=== PATIENT | female | born 1970 | race Caucasian/White ===

== ENCOUNTER 2017-01-05 19:26 | Emergency (ER) | payer OTHER ==
[~2017-01-05] VITALS: Ht 157.4 cm; Wt 77.1 kg
[~2017-01-05 19:26] MED LIST: AUGMENTIN 875875 MG PO; CEFUROXIME AXE250 MG PO; CHERATUSSIN AC120 ML PO; MEDROL DOSEPAK4 MG PO; NICODERM C14 MG/24 H TD; PREDNISONE10 MG PO; PROAIR HFA8.5 GM INH; QVAR0.08 MG/AC INH; VIBRAMYCIN100 MG PO; ZYRTEC10 MG PO
[2017-01-05] MEDS ORDERED: Peridex 473 ML473 ML PO (19:50)
[2017-01-05] MEDS ORDERED: PENICILLIN VK500 MG PO (19:50)
[2017-01-05] MEDS ORDERED: NAPROSYN500 MG PO (19:50)
== END 2017-01-05 19:40 | disposition home or self-care (01) ==
LOC: ED 19:26
DX: K02.9 Dental caries, unspecified (principal); F17.200 Nicotine dependence, unspecified, uncomplicated; J44.9 Chronic obstructive pulmonary disease, unspecified

== ENCOUNTER 2017-10-17 12:37 | Emergency (ER) | payer OTHER ==
[~2017-10-17] VITALS: Ht 157.4 cm; Wt 77.1 kg
[~2017-10-17 12:37] MED LIST changes: +NAPROSYN500 MG PO; +PENICILLIN VK500 MG PO; +Peridex 473 ML473 ML PO
[2017-10-17 13:59] LABS: BASO # 0.1 10*3/uL (0.0-0.1); BASO % 0.8 % (0.0-1.0); EOS # 0.5 10*3/uL (0.0-0.4); EOS % 5.2 % (1.0-4.0); HEMATOCRIT 49.6 % (37.0-47.0); HEMOGLOBIN 16.2 g/dl (12.0-16.0); LYMPH # 4.2 10*3/uL (1.3-4.4); LYMPH % 41.4 % (27.0-41.0); MEAN CELL VOLUME 93.1 fl (81.0-99.0); MEAN CORPUSCULAR HGB 30.4 pg (27.0-31.0); MEAN CORPUSCULAR HGB CONC 32.7 g/dl (33.0-37.0); MEAN PLATELET VOLUME 9.8 fl (9.6-12.3); MONO # 0.5 10*3/uL (0.1-1.0); MONO % 4.7 % (3.0-9.0); NEUT # 4.8 10*3/uL (2.3-7.9); NEUT % 47.6 % (47.0-73.0); PLATELET COUNT AUTOMATED 321 10*3/uL (130-400); RED BLOOD COUNT 5.33 10*6/uL (4.10-5.10); RED CELL DISTRI WIDTH 13.9 % (0-14.5); WHITE BLOOD COUNT 10.1 10*3/uL (4.8-10.8)
[2017-10-17 14:16] LABS: BUN 11 mg/dl (7-24); CHLORIDE 104 mmol/L (98-107); SGOT/AST 15 IU/L (3-35); SGPT/ALT 23 U/L (12-78); SODIUM 139 mmol/L (136-145)
[2017-10-17 14:18] LABS: ALKALINE PHOSPHATASE 77 U/L (45-117); TOTAL PROTEIN 7.8 gm/dL (6.4-8.2)
[2017-10-17 14:19] LABS: TROPONIN I < 0.015 ng/ml (<0.045)
[2017-10-17] MEDS ORDERED: PREDNISONE20 M1 PO (14:35)
[2017-10-17] MEDS ORDERED: PROAIR HFA8.5 GM INH (14:35)
[2017-10-17] MEDS ORDERED: ZITHROMAX250 MG PO (14:35)
== END 2017-10-17 14:46 | disposition home or self-care (01) ==
LOC: ED 12:37
PROVIDERS: Nurse Practitioner Family
DX: J18.1 Lobar pneumonia, unspecified organism (principal); F17.200 Nicotine dependence, unspecified, uncomplicated

== ENCOUNTER 2017-10-30 09:52 | Emergency (ER) | payer OTHER ==
[~2017-10-30] VITALS: Ht 157.4 cm; Wt 77.1 kg
[~2017-10-30 09:52] MED LIST changes: +PREDNISONE20 M1 PO; +ZITHROMAX250 MG PO
[2017-10-30 10:33] LABS: BASO # 0.1 10*3/uL (0.0-0.1); BASO % 0.9 % (0.0-1.0); EOS # 0.8 10*3/uL (0.0-0.4); EOS % 7.3 % (1.0-4.0); HEMATOCRIT 49.6 % (37.0-47.0); HEMOGLOBIN 16.7 g/dl (12.0-16.0); LYMPH # 3.1 10*3/uL (1.3-4.4); LYMPH % 27.6 % (27.0-41.0); MEAN CELL VOLUME 92.4 fl (81.0-99.0); MEAN CORPUSCULAR HGB 31.1 pg (27.0-31.0); MEAN CORPUSCULAR HGB CONC 33.7 g/dl (33.0-37.0); MONO # 0.5 10*3/uL (0.1-1.0); MONO % 4.6 % (3.0-9.0); NEUT # 6.6 10*3/uL (2.3-7.9); NEUT % 59.2 % (47.0-73.0); PLATELET COUNT AUTOMATED 343 10*3/uL (130-400); RED BLOOD COUNT 5.37 10*6/uL (4.10-5.10); WHITE BLOOD COUNT 11.1 10*3/uL (4.8-10.8)
[2017-10-30 10:48] LABS: ALBUMIN 3.8 gm/dl (3.1-4.5); ALKALINE PHOSPHATASE 83 U/L (45-117); BUN 13 mg/dl (7-24); CHLORIDE 109 mmol/L (98-107); CREATININE 0.88 mg/dL (0.55-1.02); POTASSIUM 4.3 mmol/L (3.5-5.1); SGOT/AST 15 IU/L (3-35); SGPT/ALT 26 U/L (12-78); SODIUM 140 mmol/L (136-145); TOTAL PROTEIN 7.7 gm/dL (6.4-8.2)
[2017-10-30] MEDS ORDERED: PREDNISONE20 M1 PO (13:15)
[2017-10-30] MEDS ORDERED: FLONASE ALLERG9.9 ML NAS (13:15)
[2017-10-30] MEDS ORDERED: PROAIR HFA8.5 GM INH (13:15)
== END 2017-10-30 13:31 | disposition home or self-care (01) ==
LOC: ED 09:52
PROVIDERS: Nurse Practitioner Family
DX: J44.1 Chronic obstructive pulmonary disease with (acute) exacerbation (principal); F17.200 Nicotine dependence, unspecified, uncomplicated; Z98.51 Tubal ligation status; Z79.899 Other long term (current) drug therapy

== ENCOUNTER 2017-11-21 20:51 | Inpatient (IN) | payer OTHER ==
[~2017-11-21] VITALS: Ht 157.4 cm; Wt 80.5 kg
--- NOTE | ~2017-11-21 | PR ---
[place], [place] PROGRESS NOTE NAME: HARRISON IRVIN UNIT #: [id number] ROOM: 412 DOCTOR: LATOSHA STALLINGS MD,PAOLA BIRTHDATE: [birth year] DOS: 11/25/2017 SUBJECTIVE: The patient was noted comfortable at this time without acute distress, resting. The coughing has improved significantly. There were ____ symptoms of chest pain or hemoptysis and symptoms of nausea or vomiting. OBJECTIVE: VITAL SIGNS: For the patient, which was recorded. The patient shows the temperature noted as normal. The respiratory rate of 18, heart rate of 78, blood pressure 122/80. HEENT: Chronic obesity. NECK: Supple. Head was atraumatic. CARDIOVASCULAR: S1, S2 is audible. LUNGS: The patient noted without any wheeze or crackles at this time. ABDOMEN: Soft, nontender with nzsw-dl-zovjplfr obesity, bowel sounds present. EXTREMITIES: Without any acute edema. IMPRESSION: Progressive resolution of acute hypoxic respiratory failure, acute exacerbation of bronchial asthma, possible chronic obstructive pulmonary disease has been considered. History of chronic nicotine abuse with moderate obesity. PLAN OF TREATMENT: The patient has been assessed with 6-minute walk today, but the patient did not qualify for oxygen supplementation, was planned for home discharge. She was advised to keep up appointment to be seen in the office as the patient previously planned in the next several days. PAOLA REINA MD CM:PNTRANS [id number] PAOLA STALLINGS MD 11/25/17 1845 interface
--- NOTE | ~2017-11-21 | PR ---
[place], [place] PROGRESS NOTE NAME: HARRISON IRVIN UNIT #: [id number] ROOM: 412 DOCTOR: LATOSHA STALLINGS MD,PAOLA BIRTHDATE: [birth year] DOS: 11/24/2017 SUBJECTIVE: She has been noted comfortable. Bronchoscopy done yesterday with significant reduction and improvement and resolution of acute symptoms has been noted. Denies symptoms of chest pain or hemoptysis. OBJECTIVE: VITAL SIGNS: Normal temperature, respiratory rate 18, heart rate of 80, blood pressure 112/80. The pulse oxygen saturation on 2-1/2 liters nasal cannula is 95% saturation. HEENT: Head was atraumatic. Eyes nonicterus. NECK: Supple. CARDIOVASCULAR: S1, S2 audible. LUNGS: Without wheeze or crackles. ABDOMEN: Soft, nontender. EXTREMITIES: Without any acute edema. LABORATORY DATA: CBC: WBC count 13.5 today. Blood culture, no bacterial growth. Final culture is pending from the 10th of this month. Aggressive bronchial washings. Moderate white blood cells, epithelial cells, many gram-positive cocci in pairs, chains and clusters, moderate growth of yeast. Urine culture noted normal emerson, final culture results were pending. IMPRESSION: Improving acute exacerbation of bronchial asthma, eosinophilic type gradually with improving hypoxia. PLAN OF TREATMENT: The patient could be discharged home on oral tapering dose of prednisone, bronchodilators, use of inhaled corticosteroids. Abstinence from tobacco use and outpatient followup was advised. PAOLA REINA MD CM:PNTRANS [phone] PAOLA STALLINGS MD 11/25/17 0059 interface
--- NOTE | ~2017-11-21 | PROC NOTE ---
[place], [place] PROCEDURE NOTE NAME: HARRISON IRVIN UNIT #: [id number] ROOM: 412 DOCTOR: LATOSHA STALLINGS MD,PAOLA BIRTHDATE: [birth year] DOS: 11/23/2017 PREOPERATIVE DIAGNOSIS: Severe coughing, wheezing, nonresolving with current medical management. PROCEDURE: Removal of mucus impaction and plugs of mucus, mainly in the lower portion endobronchial tree bilaterally, greater on the left than the right side. PROCEDURE DESCRIPTION: Informed consent obtained for the patient. The patient brought to the OR and placed in supine position. Conscious sedation administered by the Anesthesia Department. After achieving proper sedation, airway introduced into the mouth. Bronchoscope advanced to the airway into the laryngeal area. Epiglottis and vocal cords were seen. Bronchoscope advanced to vocal cord and tracheal lumen. Tracheal lumen was noted with a moderate amount of thick mucus, which was suctioned out with the help of normal saline wash. The lexii was noted sharp. Lower lobes on the right and left side were noted impacted with moderate thick mucus plug, greater on the left than the right side. All secretions suctioned out clear with the help of normal saline wash. Other endobronchial tree bronchial washing was also taken ON the right and left side. Bronchial washing sent for the appropriate culture. Procedure was tolerated by the patient without difficulty. Postoperative findings were discussed with the patient's family members in detail. PAOLA REINA MD CM:PROCNOTE:PROCEDURE NOTE [id number] PAOLA STALLINGS MD
--- NOTE | ~2017-11-21 | PR ---
[place], [place] PROGRESS NOTE NAME: HARRISON IRVIN UNIT #: [id number] ROOM: 412 DOCTOR: PAOLA PATTON MD BIRTHDATE: [birth year] DOS: 11/23/2017 SUBJECTIVE: The patient was noted same. She is still noted with severe cough, which remains persistent with some shortness of breath and intermittent wheezing. Denies symptoms of chest pain or any hemoptysis. The patient has symptoms of nausea and vomiting. The patient denies symptoms of chest pain. Denies symptoms of abdominal pain. Denies any edema or pain in the lower extremities. She is already noted n.p.o. past midnight and bronchoscopy, which was planned for today. OBJECTIVE: VITAL SIGNS: Normal temperature, respiratory rate 22, heart rate 102, blood pressure 130/63. Pulse oxygen saturation 3 liters nasal cannula 94% saturation. HEENT: Examination shows head was atraumatic. Eyes nonicterus. NECK: Supple. CARDIOVASCULAR: S1, S2 is audible. LUNGS: Noted without any crackles or rhonchi. Moderate decreased breath sounds. The patient with expiratory wheezing. No crackles. ABDOMEN: Soft, nontender and obese. EXTREMITIES: Without any acute edema. SKIN: Visible skin, no lesions or rashes. MUSCULOSKELETAL: The patient without any acute deformities. CENTRAL NERVOUS SYSTEM: Cranial nerves 2-12 intact. No focal deficits. LABORATORY DATA: CBC of count 19.6, remaining CBC was normal. The BMP of patient 511. Sodium 136, BUN 11, and creatinine 0.9. IMPRESSION: 1. The patient who has been currently noted with ongoing acute exacerbation of bronchial asthma with eosinophilic phenotype. 2. Acute bronchitis. 3. Chronic nicotine dependence. 4. Suspicion of mucus impaction of major airways. PLAN OF MANAGEMENT: Proceed with the bronchoscopy as already planned. No changes in the medical management at this time. Steroid dose will be continued previously. Usual care, other supportive plan of therapy and management. Any addition of changes in the treatment if necessary will be ordered after the bronchoscopy. [place], [place] PROGRESS NOTE NAME: HARRISON IRVIN UNIT #: [id number] ROOM: 412 DOCTOR: PAOLA PATTON MD BIRTHDATE: [birth year] PAOLA REINA MD CM:PNTRANS 1124 PAOLA STALLINGS MD 11/23/17 1227 interface
--- NOTE | ~2017-11-21 | CON ---
[place], [place] REPORT OF CONSULTATION NAME: HARRISON IRVIN UNIT #: [id number] ROOM: 412 DOCTOR: PAOLA PATTON MD BIRTHDATE: [birth year] DOS: 11/22/2017 PULMONARY CONSULTATION, EVALUATION AND MANAGEMENT CONSULTATION REQUESTED BY: Hospitalist services. REASON FOR CONSULTATION: For assessment of recurrent, nonresolving respiratory symptom. HISTORY OF PRESENT ILLNESS: This is a 47-year-old white female patient, who has been admitted under the hospitalist service this morning. The patient reported having symptoms of increased shortness of breath that has been occurring with progressive coughing. The patient's symptoms ongoing for the past couple of months, but the symptoms have been noted to be progressive worsening. She has been treated with the Mucinex and other medication without any improvement in the respiratory status. Symptoms have been noted progressively worse. She denies symptoms of chest pain. Cough has been noted to be severe and nonproductive mostly. There is minimal sputum expectoration reported, wheezing with chest tightness reported with some symptoms of chest pain. She has an appointment established in my office for 12/06/2017 for new patient assessment, but the patient came into the Emergency Room since she has not been improving. The patient already uses CPAP as well as an outpatient. REVIEW OF SYSTEMS: CONSTITUTIONAL: Fatigue and tiredness reported with symptoms of fever or chills. EYES: Denies any burning, redness, or tenderness. EARS, NOSE, THROAT SYMPTOMS: Denies sore throat, hoarseness, otalgia, postnasal drainage, or epistaxis. CARDIOVASCULAR: Denies angina symptoms, palpitation, or edema of lower extremity. GASTROINTESTINAL: Dysphagia, nausea, vomiting, diarrhea, abdominal pain, hematemesis, or melena. SKIN: Denies abnormal lesions or rashes. MUSCULOSKELETAL: Without any acute deformities. CENTRAL NERVOUS SYSTEM: Dizziness, headache, diplopia, or syncopal episodes. Remaining systems were reviewed. They were noted all negative. PAST MEDICAL HISTORY: 1. Recurrent bronchitis. 2. Chronic nicotine dependence. 3. Moderate obesity, BMI of 32. SOCIAL HISTORY: The patient is , has 4 children. Smoking noted since early teens. Active tobacco use, 1 pack of cigarettes per day. No history of alcohol use or any illicit drugs use. PAST SURGICAL HISTORY: None. [place], [place] REPORT OF CONSULTATION NAME: HARRISON IRVIN UNIT #: [id number] ROOM: 412 DOCTOR: LATOSHA STALLINGS MD,PAOLA BIRTHDATE: [birth year] HOME MEDICATIONS: The patient has recent prescription of prednisone, Medrol Dosepak, ____ and Zithromax. The patient uses Flonase and poor HFA inhaler use. FAMILY HISTORY: The patient's father, living 66 years old with history of heart disease. His mother is a 65-year-old patient with the kidney stones. DRUG ALLERGIES: No known drug allergies. PHYSICAL EXAMINATION: GENERAL: This is a 47-year-old female, who has been currently resting, comfortably sitting on the bed without acute distress. Height of 5 feet 2 inches, weight 177, BUN 32.7. VITAL SIGNS: Normal temperature, respirations 18-20, heart 91-113, blood pressure 118/63-110/58. Pulse oxygen saturation on room air 92% saturation at rest. HEENT: Moderate obesity. Head was atraumatic. Eyes nonicterus. NECK: Supple. CARDIOVASCULAR: S1, S2 audible. LUNGS: Diffuse reduction in breath sounds with expiratory wheezing without any crackles. ABDOMEN: Soft. Moderate obesity. Bowel sounds present without tenderness. CENTRAL NERVOUS SYSTEM: Cranial nerves 2-12 intact. MUSCULOSKELETAL: Without any acute deformities. SKIN: Noted without any abnormal lesions or rashes. LABORATORY DATA: CMP that was done yesterday with normal BUN and creatinine 1.16, minimally elevated, LFTs normal. CBC yesterday, WBC count 10.9 noted on admission with 6.8% eosinophils. CBC repeated this morning was noted with normal CBC. CMP on 11/22/2017, glucose 152, BUN normal, creatinine was normal. Chest x-ray, 1 view, which was done on admission was reviewed without any acute pulmonary abnormalities. IMPRESSION: 1. The patient appears to have acute exacerbation of bronchial asthma. The patient with eosinophilic type and acute bronchitis. 2. Chronic nicotine abuse as well. 3. Possibility of chronic obstructive pulmonary disease would be considered and to be excluded on further outpatient assessment. 4. Suspicion of mucus impaction major airway with prolonged symptoms ongoing for the past several months, nonresolving, cough noted severe, nonproductive. PLAN OF MANAGEMENT: I agree with use of Solu-Medrol 60 mg b.i.d. Continuation of the bronchodilators every 4 hours. Continue current antibiotics as well. The patient was assessed for therapeutic bronchoscopy, which will be done tomorrow morning to extract mucus impaction major airway, which would be considered very likely. Other additional changes in the treatment will be made based on progression of the illness. Use of nicotine replacement patch to overcome any nicotine withdrawal and/or Chantix. Other supportive therapy, plan of management. [place], [place] REPORT OF CONSULTATION NAME: HARRISON IRVIN UNIT #: [id number] ROOM: [facility] DOCTOR: LATOSHA STALLINGS MD,PAOLA BIRTHDATE: [birth year] Thanks for allowing me to participate in the care of this patient. PAOLA REINA MD CM:CONSTR:REPORT OF CONSULTATION 1502 11/23/17 0110 interface
[~2017-11-21 20:51] MED LIST changes: +FLONASE ALLERG9.9 ML NAS
[2017-11-21 20:52] VITALS: BP 111/76
[2017-11-21 22:22] LABS: BASO # 0.1 10*3/uL (0.0-0.1); BASO % 0.7 % (0.0-1.0); EOS # 0.7 10*3/uL (0.0-0.4); EOS % 6.8 % (1.0-4.0); HEMATOCRIT 46.2 % (37.0-47.0); HEMOGLOBIN 15.4 g/dl (12.0-16.0); LYMPH # 4.4 10*3/uL (1.3-4.4); LYMPH % 39.8 % (27.0-41.0); MEAN CELL VOLUME 93.1 fl (81.0-99.0); MEAN CORPUSCULAR HGB CONC 33.3 g/dl (33.0-37.0); MEAN PLATELET VOLUME 9.6 fl (9.6-12.3); MONO # 0.6 10*3/uL (0.1-1.0); MONO % 5.8 % (3.0-9.0); NEUT # 5.1 10*3/uL (2.3-7.9); NEUT % 46.6 % (47.0-73.0); PLATELET COUNT AUTOMATED 328 10*3/uL (130-400); RED BLOOD COUNT 4.96 10*6/uL (4.10-5.10); RED CELL DISTRI WIDTH 13.5 % (0-14.5); WHITE BLOOD COUNT 10.9 10*3/uL (4.8-10.8)
[2017-11-21 22:37] LABS: ALBUMIN 3.9 gm/dl (3.1-4.5); ALKALINE PHOSPHATASE 82 U/L (45-117); BUN 19 mg/dl (7-24); CHLORIDE 103 mmol/L (98-107); CREATININE 1.16 mg/dL (0.55-1.02); POTASSIUM 4.4 mmol/L (3.5-5.1); SGOT/AST 11 IU/L (3-35); SGPT/ALT 21 U/L (12-78); SODIUM 140 mmol/L (136-145); TOTAL PROTEIN 7.2 gm/dL (6.4-8.2)
[2017-11-21 23:50] VITALS: BP 111/73
[2017-11-22] VITALS (7 sets, daily range): BP systolic 104–127; BP diastolic 62–78
[2017-11-22 07:15] LABS: BASO % 0.4 % (0.0-1.0); EOS % 0.5 % (1.0-4.0); HEMOGLOBIN 14.4 g/dl (12.0-16.0); LYMPH # 1.3 10*3/uL (1.3-4.4); LYMPH % 15.1 % (27.0-41.0); MEAN CELL VOLUME 94.2 fl (81.0-99.0); MEAN CORPUSCULAR HGB 30.8 pg (27.0-31.0); MEAN CORPUSCULAR HGB CONC 32.7 g/dl (33.0-37.0); MEAN PLATELET VOLUME 10.3 fl (9.6-12.3); MONO # 0.1 10*3/uL (0.1-1.0); MONO % 0.7 % (3.0-9.0); NEUT % 82.8 % (47.0-73.0); PLATELET COUNT AUTOMATED 282 10*3/uL (130-400); RED BLOOD COUNT 4.67 10*6/uL (4.10-5.10); RED CELL DISTRI WIDTH 13.4 % (0-14.5); WHITE BLOOD COUNT 8.5 10*3/uL (4.8-10.8)
[2017-11-22 07:32] LABS: ALBUMIN 3.4 gm/dl (3.1-4.5); ALKALINE PHOSPHATASE 77 U/L (45-117); BUN 16 mg/dl (7-24); CHLORIDE 107 mmol/L (98-107); CHOLESTEROL 290 mg/dL (<200); CREATININE 1.07 mg/dL (0.55-1.02); FREE T4 0.81 ng/dl (0.76-1.46); HDL CHOLESTEROL 33 mg/dl (40-60); LDL CHOLESTEROL 200 mg/dL (9-159); PHOSPHOROUS 1.9 mg/dL (2.5-4.9); POTASSIUM 4.3 mmol/L (3.5-5.1); SGOT/AST 12 IU/L (3-35); SGPT/ALT 25 U/L (12-78); SODIUM 140 mmol/L (136-145); TOTAL PROTEIN 6.7 gm/dL (6.4-8.2); TRIGLYCERIDES 283 mg/dl (<150); VLDL CHOLESTEROL 57 mg/dL (6-40)
[2017-11-22 08:24] LABS: VITAMIN D, 25-HYDROXY 9.8 ng/mL (30-100)
[2017-11-22 08:39] LABS: BILIRUBIN NEGATIVE (NEGATIVE); BLOOD 1+ (NEGATIVE); CLARITY CLEAR (CLEAR); COLOR YELLOW (YELLOW); GLUCOSE NEGATIVE (NEGATIVE); KETONE NEGATIVE (NEGATIVE); LEUKO ESTERASE NEGATIVE (NEGATIVE); NITRITE NEGATIVE (NEGATIVE); PH 5.5 (5.0-9.0); UROBILINOGEN 0.2 E.U./dl (0.2-1.0)
[2017-11-22 09:14] LABS: BACTERIA TRACE; EPITHELIAL CELLS 0-2
[2017-11-23] VITALS (8 sets, daily range): BP systolic 91–140; BP diastolic 57–87
[2017-11-23 05:38] LABS: BUN 11 mg/dl (7-24); CHLORIDE 112 mmol/L (98-107); CREATININE 0.94 mg/dL (0.55-1.02); POTASSIUM 4.1 mmol/L (3.5-5.1); SODIUM 145 mmol/L (136-145)
[2017-11-23 06:09] LABS: BASO % 0.1 % (0.0-1.0); HEMATOCRIT 42.2 % (37.0-47.0); HEMOGLOBIN 13.6 g/dl (12.0-16.0); LYMPH # 1.6 10*3/uL (1.3-4.4); LYMPH % 8.1 % (27.0-41.0); MEAN CELL VOLUME 95.5 fl (81.0-99.0); MEAN CORPUSCULAR HGB 30.8 pg (27.0-31.0); MEAN CORPUSCULAR HGB CONC 32.2 g/dl (33.0-37.0); MEAN PLATELET VOLUME 10.5 fl (9.6-12.3); MONO # 0.5 10*3/uL (0.1-1.0); MONO % 2.3 % (3.0-9.0); NEUT # 17.4 10*3/uL (2.3-7.9); NEUT % 88.7 % (47.0-73.0); PLATELET COUNT AUTOMATED 307 10*3/uL (130-400); RED BLOOD COUNT 4.42 10*6/uL (4.10-5.10); RED CELL DISTRI WIDTH 13.9 % (0-14.5); WHITE BLOOD COUNT 19.6 10*3/uL (4.8-10.8)
[2017-11-24] VITALS: BP 117/77
[2017-11-24 06:16] LABS: BASO % 0.2 % (0.0-1.0); EOS % 0.1 % (1.0-4.0); HEMATOCRIT 41.9 % (37.0-47.0); HEMOGLOBIN 13.5 g/dl (12.0-16.0); LYMPH # 1.4 10*3/uL (1.3-4.4); LYMPH % 10.6 % (27.0-41.0); MEAN CELL VOLUME 95.7 fl (81.0-99.0); MEAN CORPUSCULAR HGB 30.8 pg (27.0-31.0); MEAN CORPUSCULAR HGB CONC 32.2 g/dl (33.0-37.0); MEAN PLATELET VOLUME 10.5 fl (9.6-12.3); MONO # 0.3 10*3/uL (0.1-1.0); MONO % 2.5 % (3.0-9.0); NEUT # 11.4 10*3/uL (2.3-7.9); NEUT % 84.9 % (47.0-73.0); PLATELET COUNT AUTOMATED 292 10*3/uL (130-400); RED BLOOD COUNT 4.38 10*6/uL (4.10-5.10); RED CELL DISTRI WIDTH 14.3 % (0-14.5); WHITE BLOOD COUNT 13.5 10*3/uL (4.8-10.8)
[2017-11-24 08:00] VITALS: BP 111/74
[2017-11-24 12:00] VITALS: BP 112/80
[2017-11-24 13:04] LABS: ACID FAST SPEC PROCESSING Concentration (.)
[2017-11-24 16:00] VITALS: BP 133/63
[2017-11-24 20:00] VITALS: BP 127/84
[2017-11-25] VITALS: BP 112/78
[2017-11-25 06:33] LABS: HEMATOCRIT 43.9 % (37.0-47.0); HEMOGLOBIN 14.1 g/dl (12.0-16.0); MEAN CELL VOLUME 94.8 fl (81.0-99.0); MEAN CORPUSCULAR HGB 30.5 pg (27.0-31.0); MEAN CORPUSCULAR HGB CONC 32.1 g/dl (33.0-37.0); MEAN PLATELET VOLUME 10.6 fl (9.6-12.3); PLATELET COUNT AUTOMATED 301 10*3/uL (130-400); RED BLOOD COUNT 4.63 10*6/uL (4.10-5.10); RED CELL DISTRI WIDTH 14.1 % (0-14.5); WHITE BLOOD COUNT 12.7 10*3/uL (4.8-10.8)
[2017-11-25 07:05] LABS: ALBUMIN 3.4 gm/dl (3.1-4.5); BUN 15 mg/dl (7-24); CHLORIDE 108 mmol/L (98-107); CREATININE 0.82 mg/dL (0.55-1.02); POTASSIUM 4.2 mmol/L (3.5-5.1); SGOT/AST 10 IU/L (3-35); SGPT/ALT 18 U/L (12-78); SODIUM 142 mmol/L (136-145)
[2017-11-25 07:07] LABS: ALKALINE PHOSPHATASE 69 U/L (45-117); TOTAL PROTEIN 6.6 gm/dL (6.4-8.2)
[2017-11-25 07:13] LABS: PLATELET SUFFICIENCY NORMAL (NORMAL); TOTAL CELLS COUNTED 100 #CELLS
[2017-11-25 08:00] VITALS: BP 122/80
[2017-11-25 12:00] VITALS: BP 114/82
[2017-11-25] MEDS ORDERED: MUCINEX ER600 MG PO (12:14)
[2017-11-25] MEDS ORDERED: DULE1ARO1 INH (12:14)
[2017-11-25] MEDS ORDERED: PREDNISONE10 MG PO (12:14)
[2017-11-25] MEDS ORDERED: ATORVASTATIN CA40 M1 PO (12:14)
[2017-11-25] MEDS ORDERED: PROAIR HFA8.5 GM INH (12:14)
[2017-11-25] MEDS ORDERED: CHANTIX1 M1 PO (13:54)
== END 2017-11-25 13:59 | disposition home or self-care (01) | DRG 871 ==
LOC: ED 20:51 → 4E 11-22 00:18 → EDHOLD 11-22 00:18 → 4E 11-22 00:29
PROVIDERS: Emergency Medicine; Family Medicine; Internal Medicine Critical Care Medicine
PROC: 0BC98ZZ Extirpation of Matter from Lingula Bronchus, Via Natural or Artificial Opening Endoscopic (ICD-10-PCS; principal; 2017-11-23)
PROC: 0BC48ZZ Extirpation of Matter from Right Upper Lobe Bronchus, Via Natural or Artificial Opening Endoscopic (ICD-10-PCS; 2017-11-23)
PROC: 0BC88ZZ Extirpation of Matter from Left Upper Lobe Bronchus, Via Natural or Artificial Opening Endoscopic (ICD-10-PCS; 2017-11-23)
PROC: 0BC58ZZ Extirpation of Matter from Right Middle Lobe Bronchus, Via Natural or Artificial Opening Endoscopic (ICD-10-PCS; 2017-11-23)
PROC: 0BC38ZZ Extirpation of Matter from Right Main Bronchus, Via Natural or Artificial Opening Endoscopic (ICD-10-PCS; 2017-11-23)
PROC: 0BC78ZZ Extirpation of Matter from Left Main Bronchus, Via Natural or Artificial Opening Endoscopic (ICD-10-PCS; 2017-11-23)
PROC: 0BC68ZZ Extirpation of Matter from Right Lower Lobe Bronchus, Via Natural or Artificial Opening Endoscopic (ICD-10-PCS; 2017-11-23)
PROC: 0BCB8ZZ Extirpation of Matter from Left Lower Lobe Bronchus, Via Natural or Artificial Opening Endoscopic (ICD-10-PCS; 2017-11-23)
PROC: 0BC18ZZ Extirpation of Matter from Trachea, Via Natural or Artificial Opening Endoscopic (ICD-10-PCS; 2017-11-23)
DX: A41.9 Sepsis, unspecified organism (principal); J18.9 Pneumonia, unspecified organism; J96.01 Acute respiratory failure with hypoxia; N17.9 Acute kidney failure, unspecified; J44.0 Chronic obstructive pulmonary disease with (acute) lower respiratory infection; T17.490A Other foreign object in trachea causing asphyxiation, initial encounter; T17.590A Other foreign object in bronchus causing asphyxiation, initial encounter; J45.901 Unspecified asthma with (acute) exacerbation; J44.1 Chronic obstructive pulmonary disease with (acute) exacerbation; R65.20 Severe sepsis without septic shock; E78.5 Hyperlipidemia, unspecified; E66.8 Other obesity; F17.210 Nicotine dependence, cigarettes, uncomplicated; J20.9 Acute bronchitis, unspecified; X58.XXXA Exposure to other specified factors, initial encounter; Z98.51 Tubal ligation status; Z84.1 Family history of disorders of kidney and ureter; Z80.8 Family history of malignant neoplasm of other organs or systems; Z82.49 Family history of ischemic heart disease and other diseases of the circulatory system; Z68.32 Body mass index [BMI] 32.0-32.9, adult; Y93.89 Activity, other specified; Y92.89 Other specified places as the place of occurrence of the external cause; Y99.8 Other external cause status

== ENCOUNTER → 2017-12-04 | Outpatient (CLI) | payer OTHER ==
[~2017-12-04] MED LIST changes: +ATORVASTATIN CA40 M1 PO; +CHANTIX1 M1 PO; +DULE1ARO1 INH; +MUCINEX ER600 MG PO
== END | disposition home or self-care (01) ==
LOC: RESCLI
DX: J44.9 Chronic obstructive pulmonary disease, unspecified (principal); E78.5 Hyperlipidemia, unspecified; J30.2 Other seasonal allergic rhinitis; N92.6 Irregular menstruation, unspecified; R73.03 Prediabetes; Z71.6 Tobacco abuse counseling; Z72.0 Tobacco use

== ENCOUNTER 2017-12-18 15:24 | Inpatient (IN) | payer OTHER ==
--- NOTE | ~2017-12-18 | CON ---
[place], [place] REPORT OF CONSULTATION NAME: HARRISON IRVIN [facility] #: [id number] UNIT #: [id number] ROOM: 522 DOCTOR: PAOLA PATTON MD BIRTHDATE: [birth year] DOS: 12/19/2017 CONSULTATION REQUESTED BY: Hospitalist services for assessment of the acute respiratory symptoms. HISTORY OF PRESENT ILLNESS: This is a 47-year-old white female who has been treated in this hospital recently for the acute exacerbation of bronchial asthma and acute bronchitis. The patient required therapeutic bronchoscopy during this admission in November 2017 as well. He has been doing extremely well, free of any acute respiratory symptoms. She stated that she contracted cold-like sensation about couple of days, which was noted with rapid progression. She has noticed significant difficulty breathing. The patient is unable to breath with minimal exertion. She also developed symptoms of coughing, which has been noted progressively increased, nonproductive, chest congestion and hoarseness. She denies symptoms of hemoptysis. She denies symptoms of chest pain with current symptoms. She came into the Emergency Room where she had been assessed and readmitted to the hospital for further medical management. The patient has been seen in my office after discharge from the hospital, doing very well except symptoms of gastroesophageal reflux noted with hoarseness. Responded to the treatment very well with the use of the antireflux therapy with use of the Prilosec. PAST MEDICAL HISTORY: 1. Bronchial asthma. The severity was noted as uncomplicated moderate persistent. 2. Chronic obstructive pulmonary disease as well. 3. Allergic rhinitis. 4. Gastroesophageal reflux. 5. Dysphonia related to gastroesophageal reflux. 6. Moderate obesity as well. PAST SURGICAL HISTORY: Therapeutic bronchoscopy in November 2017. SOCIAL HISTORY: She is , has 4 children, lives at home. Smoking was noted from age [age] years old, 2 packs of cigarettes per day. Stated currently she is smoking only few cigarettes a day and has not been able to stop it completely and history of chronic alcohol and illicit drug use. FAMILY HISTORY: Father is living 65 years old without any medical illnesses. Mother is healthy 64 years old living as well. HOME MEDICATIONS: 1. Omeprazole 40 mg daily. 2. Dulera 100/5 two inhalations b.i.d. 3. Lipitor 40 mg daily. 4. ProAir HFA inhaler p.r.n. use. 5. Flonase 1 spray each nostril b.i.d. PHYSICAL EXAMINATION: GENERAL: This is a 47-year-old female who has been currently sitting on the bed [place], [place] REPORT OF CONSULTATION NAME: HARRISON IRVIN UNIT #: [id number] ROOM: 522 DOCTOR: LATOSHA STALLINGS MD,[facility] BIRTHDATE: [birth year] without any acute distress. Height of 5 feet 2 inches, weight of 104 pounds. BMI 32. VITAL SIGNS: Normal temperature, respiratory rate of 11-12, heart rate of 113-114 with sinus tachycardia, blood pressure 127/63-148/95, pulse oxygen saturation noted 2 liters 94% saturation. HEENT: Head is atraumatic. Eyes, nonicterus. NECK: Supple. CARDIOVASCULAR: S1, S2 audible. LUNGS: Noted moderate reduction in breath sounds bilaterally. There were no crackles, rhonchi. Moderate expiratory wheezing. ABDOMEN: Soft. Mild to moderate obesity. Bowel sounds present. EXTREMITIES: Without any acute edema. SKIN: No lesions or rashes. MUSCULOSKELETAL: No acute deformities. CENTRAL NERVOUS SYSTEM: Cranial nerves II-XII was intact. LABORATORY DATA: CBC that was done yesterday on admission, 4.1% eosinophils. The remaining CBC is normal. PT and PTT on 12/18/2017 were noted as normal. CMP on 12/18/2017, BUN normal, creatinine was normal. CBC that was done this morning was noted as WBC count 5.6, hemoglobin 14, hematocrit 42.8. Troponin remains normal. One view chest x-ray, which was done and the margins noted clear of any acute pulmonary infiltration. IMPRESSION: 1. Eosinophilic phenotype with uncomplicated moderate persistent bronchial asthma with acute exacerbation noted with history of chronic obstructive pulmonary disease, acute exacerbation as well and a chronic persistent nicotine abuse; however, the quantity of tobacco use has been decreased. 2. Chronic dysphonia related to the uncontrolled gastroesophageal reflux as well noted worsened again. PLAN OF TREATMENT: Continuation of the bronchodilator every 4 hours. Continue Solu-Medrol 60 mg q.8 hours for the next 24 hours, then reduce the dose. Bronchodilators administration of antibiotics. Tobacco cessation would be encouraged. The patient has been started on nicotine replacement patches that will be continued to overcome any nicotine withdrawal. Addition change in treatment will be made based on progression of the illness. PAOLA REINA MD CM:CONSTR:REPORT OF CONSULTATION 1408 12/19/17 1529 interface
--- NOTE | ~2017-12-18 | PR ---
[place], [place] PROGRESS NOTE NAME: HARRISON IRVIN [facility] #: [id number] UNIT #: [id number] ROOM: 522 DOCTOR: LATOSHA STALLINGS MD,PAOLA BIRTHDATE: [birth year] DOS: 12/21/2017 SUBJECTIVE: The patient noted comfortable at this time, resting in the bed. Has not been noted any symptoms of chest pain or hemoptysis. The coughing has been still noted, nonproductive, which has been gradually resolving. Denies symptoms of chest pain or hemoptysis. Wheezing has been improving. OBJECTIVE: VITAL SIGNS: Normal temperature, respiratory rate 20, heart rate 111, blood pressure 134/75, 118/71, pulse ox saturation on room air 96% saturation. HEENT: Head was atraumatic. Eyes nonicterus. NECK: Obese. CARDIOVASCULAR: S1, S2 audible. LUNGS: The patient was noted without any wheezing or crackles. The breaths are noted [id number]-wn-[id number] decreased bilaterally. ABDOMEN: Soft, nontender. LABORATORY DATA: BMP today, normal BUN and creatinine. CBC: WBC count 16.2, otherwise normal CBC. IMPRESSION: The patient with resolving acute exacerbation of chronic obstructive pulmonary disease, bronchial asthma gradually, mild expiratory wheezing noted. The patient at this time with the current course of corticosteroids. Mild tachycardia also noted ____ acute exacerbation of chronic obstructive pulmonary disease and bronchial asthma. PLAN OF MANAGEMENT: Continue current dose of steroids. The patient could be discharged home on tapering ____ days, then usual about 15 days could be considered. Abstinence of tobacco use very recommended. Continue antireflux therapy because of the hoarseness with gastroesophageal reflux. PAOLA REINA MD CM:PNTRANS 1218 [id number] PAOLA STALLINGS MD 12/21/17 1349 interface
--- NOTE | ~2017-12-18 | PR ---
[place], [place] PROGRESS NOTE NAME: [facility] [id number] UNIT #: [id number] ROOM: 522 DOCTOR: LATOSHA STALLINGS MD,PAOLA BIRTHDATE: [birth year] DOS: 12/20/2017 SUBJECTIVE: She has been noted with reduction in the symptoms of coughing, shortness of breath and wheezing in the last 24 hours. She is receiving high dose Solu-Medrol intravenously and nebulized bronchodilators. The patient has not been noted symptoms of chest pain or any hemoptysis. OBJECTIVE: VITAL SIGNS: Normal temperature, respiratory rate 18, heart rate 113, blood pressure 117/80. The pulse oxygen saturation on room air was 93% saturation. HEENT: Moderate obese. Head was atraumatic. Eyes nonicterus. NECK: Supple. CARDIOVASCULAR: S1, S2 audible. LUNGS: Mild expiratory wheezing noted with improvement from yesterday. ABDOMEN: Soft and obese. EXTREMITIES: Without any acute edema. LABORATORY DATA: CBC: WBC count 17,000 for the patient, remaining CBC normal. The CMP this morning: Glucose 134, normal BUN and creatinine, remaining LFTs were normal. IMPRESSION: The patient with steroid-induced leukocytosis. The patient is noted with resolving acute exacerbation of chronic obstructive pulmonary disease and bronchial asthma. PLAN OF MANAGEMENT: The dose of Solu-Medrol has been decreased from 60 mg q. 8 hours to 40 mg b.i.d. the next 24 hours. Observe the patient closely for any worsening of respiratory symptoms. If the patient does well with current dose of steroids, she will be considered for home discharge. PAOLA REINA MD CM:PNTRANS 1108 [id number] PAOLA STALLINGS MD 12/20/17 1122 interface
[2017-12-18 15:25] VITALS: BP 135/53
[2017-12-18] MEDS ORDERED: CLARITIN10 MG PO (15:29)
[2017-12-18 16:48] VITALS: BP 114/76
[2017-12-18] MEDS ORDERED: PREDNISONE20 M1 PO (17:15)
[2017-12-18] MEDS ORDERED: ZITHROMAX250 MG PO (17:15)
[2017-12-18 17:40] VITALS: BP 128/80
[2017-12-18] MEDS ORDERED: OMEPRAZOLE40 MG PO (18:44)
[2017-12-18 19:12] VITALS: BP 148/95
[2017-12-18 20:07] LABS: BASO % 0.5 % (0.0-1.0); EOS # 0.3 10*3/uL (0.0-0.4); EOS % 4.1 % (1.0-4.0); HEMATOCRIT 45.8 % (37.0-47.0); HEMOGLOBIN 15.1 g/dl (12.0-16.0); LYMPH # 0.9 10*3/uL (1.3-4.4); LYMPH % 12.2 % (27.0-41.0); MEAN CELL VOLUME 94.8 fl (81.0-99.0); MEAN CORPUSCULAR HGB 31.3 pg (27.0-31.0); MONO # 0.2 10*3/uL (0.1-1.0); MONO % 2.5 % (3.0-9.0); NEUT # 6.1 10*3/uL (2.3-7.9); NEUT % 80.2 % (47.0-73.0); PLATELET COUNT AUTOMATED 263 10*3/uL (130-400); RED BLOOD COUNT 4.83 10*6/uL (4.10-5.10); RED CELL DISTRI WIDTH 13.6 % (0-14.5); WHITE BLOOD COUNT 7.6 10*3/uL (4.8-10.8)
[2017-12-18 20:17] LABS: ACT PARTIAL THROMBO TIME 24.3 SECONDS (20.8-31.5)
[2017-12-18 20:25] LABS: ALKALINE PHOSPHATASE 95 U/L (45-117); BUN 7 mg/dl (7-24); CHLORIDE 106 mmol/L (98-107); CREATININE 0.89 mg/dL (0.55-1.02); PHOSPHOROUS 3.6 mg/dL (2.5-4.9); POTASSIUM 4.7 mmol/L (3.5-5.1); SGOT/AST 15 IU/L (3-35); SGPT/ALT 31 U/L (12-78); SODIUM 141 mmol/L (136-145); TOTAL PROTEIN 7.7 gm/dL (6.4-8.2)
[2017-12-18 20:28] LABS: TROPONIN I < 0.015 ng/ml (<0.045)
[2017-12-18 21:06] VITALS: BP 95/75
[2017-12-19] VITALS: BP 117/78
[2017-12-19 06:43] LABS: BASO % 0.2 % (0.0-1.0); HEMATOCRIT 42.8 % (37.0-47.0); HEMOGLOBIN 14.1 g/dl (12.0-16.0); LYMPH # 0.6 10*3/uL (1.3-4.4); MEAN CELL VOLUME 94.7 fl (81.0-99.0); MEAN CORPUSCULAR HGB 31.2 pg (27.0-31.0); MEAN CORPUSCULAR HGB CONC 32.9 g/dl (33.0-37.0); MONO # 0.1 10*3/uL (0.1-1.0); MONO % 1.4 % (3.0-9.0); NEUT # 4.9 10*3/uL (2.3-7.9); PLATELET COUNT AUTOMATED 271 10*3/uL (130-400); RED BLOOD COUNT 4.52 10*6/uL (4.10-5.10); RED CELL DISTRI WIDTH 13.4 % (0-14.5); WHITE BLOOD COUNT 5.6 10*3/uL (4.8-10.8)
[2017-12-19 07:03] LABS: BUN 9 mg/dl (7-24); CHLORIDE 108 mmol/L (98-107); POTASSIUM 3.8 mmol/L (3.5-5.1); SODIUM 142 mmol/L (136-145)
[2017-12-19 07:05] LABS: CREATININE 0.92 mg/dL (0.55-1.02); PHOSPHOROUS 2.1 mg/dL (2.5-4.9)
[2017-12-19 08:00] VITALS: BP 104/77
[2017-12-19 11:54] VITALS: BP 127/63
[2017-12-19 16:00] VITALS: BP 116/66
[2017-12-19 20:00] VITALS: BP 112/57
[2017-12-20] VITALS: BP 102/59
[2017-12-20 06:06] LABS: ALBUMIN 3.3 gm/dl (3.1-4.5); BUN 14 mg/dl (7-24); CHLORIDE 110 mmol/L (98-107); CREATININE 0.87 mg/dL (0.55-1.02); PHOSPHOROUS 2.6 mg/dL (2.5-4.9); POTASSIUM 4.2 mmol/L (3.5-5.1); SGOT/AST 15 IU/L (3-35); SGPT/ALT 28 U/L (12-78); SODIUM 143 mmol/L (136-145); TOTAL PROTEIN 6.4 gm/dL (6.4-8.2)
[2017-12-20 06:07] LABS: ALKALINE PHOSPHATASE 71 U/L (45-117)
[2017-12-20 06:12] LABS: BASO % 0.1 % (0.0-1.0); HEMATOCRIT 42.4 % (37.0-47.0); HEMOGLOBIN 13.5 g/dl (12.0-16.0); LYMPH # 1.3 10*3/uL (1.3-4.4); LYMPH % 7.9 % (27.0-41.0); MEAN CELL VOLUME 96.4 fl (81.0-99.0); MEAN CORPUSCULAR HGB 30.7 pg (27.0-31.0); MEAN CORPUSCULAR HGB CONC 31.8 g/dl (33.0-37.0); MEAN PLATELET VOLUME 10.1 fl (9.6-12.3); MONO # 0.5 10*3/uL (0.1-1.0); MONO % 3.1 % (3.0-9.0); NEUT % 88.1 % (47.0-73.0); PLATELET COUNT AUTOMATED 291 10*3/uL (130-400); RED CELL DISTRI WIDTH 14.1 % (0-14.5)
[2017-12-20 08:00] VITALS: BP 117/80
[2017-12-20 12:00] VITALS: BP 112/64
[2017-12-20 16:00] VITALS: BP 111/63
[2017-12-20 20:00] VITALS: BP 115/69
[2017-12-21] VITALS: BP 118/71
[2017-12-21 06:37] LABS: BASO % 0.2 % (0.0-1.0); HEMATOCRIT 41.6 % (37.0-47.0); HEMOGLOBIN 13.5 g/dl (12.0-16.0); LYMPH # 2.8 10*3/uL (1.3-4.4); LYMPH % 17.1 % (27.0-41.0); MEAN CELL VOLUME 96.1 fl (81.0-99.0); MEAN CORPUSCULAR HGB 31.2 pg (27.0-31.0); MEAN CORPUSCULAR HGB CONC 32.5 g/dl (33.0-37.0); MEAN PLATELET VOLUME 10.3 fl (9.6-12.3); MONO # 0.7 10*3/uL (0.1-1.0); MONO % 4.6 % (3.0-9.0); NEUT # 12.4 10*3/uL (2.3-7.9); NEUT % 76.3 % (47.0-73.0); PLATELET COUNT AUTOMATED 282 10*3/uL (130-400); RED BLOOD COUNT 4.33 10*6/uL (4.10-5.10); RED CELL DISTRI WIDTH 14.3 % (0-14.5); WHITE BLOOD COUNT 16.2 10*3/uL (4.8-10.8)
[2017-12-21 06:54] LABS: BUN 17 mg/dl (7-24); CHLORIDE 110 mmol/L (98-107); CREATININE 0.88 mg/dL (0.55-1.02); SODIUM 144 mmol/L (136-145)
[2017-12-21 08:00] VITALS: BP 134/75
[2017-12-21] MEDS ORDERED: PREDNISONE10 MG PO (12:16)
[2017-12-21] MEDS ORDERED: MUCINEX ER600 MG PO (12:16)
[2017-12-21] MEDS ORDERED: LEVAQUIN750 M1 PO (12:16)
[2017-12-21] MEDS ORDERED: FLONASE ALLERG9.9 ML NAS (12:17)
== END 2017-12-21 12:36 | disposition home or self-care (01) | DRG 871 ==
LOC: ED 15:24 → EDHOLD 18:18 → 5E 18:18
PROVIDERS: Internal Medicine; Internal Medicine Nephrology
DX: A41.9 Sepsis, unspecified organism (principal); J96.01 Acute respiratory failure with hypoxia; D72.1 Eosinophilia; E44.1 Mild protein-calorie malnutrition; J45.901 Unspecified asthma with (acute) exacerbation; D72.810 Lymphocytopenia; E55.9 Vitamin D deficiency, unspecified; T38.0X5A Adverse effect of glucocorticoids and synthetic analogues, initial encounter; E66.9 Obesity, unspecified; E78.5 Hyperlipidemia, unspecified; K21.9 Gastro-esophageal reflux disease without esophagitis; J30.9 Allergic rhinitis, unspecified; Z84.89 Family history of other specified conditions; Z71.6 Tobacco abuse counseling; Z72.0 Tobacco use; Z79.899 Other long term (current) drug therapy; Z98.51 Tubal ligation status; Z80.9 Family history of malignant neoplasm, unspecified; Y92.89 Other specified places as the place of occurrence of the external cause

== ENCOUNTER → 2018-01-09 | Outpatient (CLI) | payer OTHER ==
[~2018-01-09] MED LIST changes: +CLARITIN10 MG PO; +DUONEB 3 MG/3 ML3 M1 INH; +FLUONAZOLE100 M1 PO; +LEVAQUIN750 M1 PO; +LEVOFLOXACIN500 MG PO; +NICODERM CQ1 EAC2 T; +OMEPRAZOLE40 MG PO
== END | disposition home or self-care (01) ==
LOC: RESCLI 03:07
DX: E78.5 Hyperlipidemia, unspecified (principal); J45.40 Moderate persistent asthma, uncomplicated; J30.2 Other seasonal allergic rhinitis; Z71.6 Tobacco abuse counseling; Z87.891 Personal history of nicotine dependence

== ENCOUNTER 2018-01-10 19:07 | Inpatient (IN) | payer OTHER ==
[~2018-01-10] VITALS: Ht 157.5 cm; Wt 83.5 kg
--- NOTE | ~2018-01-10 | PROC NOTE ---
[place], [place] PROCEDURE NOTE NAME: HARRISON IRVIN UNIT #: [id number] ROOM: 530 DOCTOR: LATOSHA STALLINGS MD,PAOLA BIRTHDATE: [birth year] DOS: 01/14/2018 BRONCHOSCOPY NOTE PREOPERATIVE DIAGNOSES: Persistent severe cough and wheezing, maximum medical therapy, history of chronic nicotine dependence, suspected mucus impaction of major airways. POSTOPERATIVE DIAGNOSES: Successful removal of the mucus plug, which are noted in almost all of the endobronchial tree subsegments bilaterally without any difficulty. FINDINGS: Acute tracheobronchitis. No obstructive lesions. PROCEDURE DESCRIPTION: Informed consent obtained from the patient. The patient brought to the OR and placed in supine position. Conscious sedation administered by the Anesthesia Department. After achieving proper sedation, airway introduced into the mouth. Bronchoscope advanced to the airway into laryngeal area. Epiglottis and vocal cords were seen, which were moving symmetrically with the movements. Bronchoscope advanced to vocal cord and tracheal lumen shows moderate amount of thick mucus secretion suctioned at the lexii level. Several thick plugs of the mucus present in endobronchial tree bilaterally. The right upper, right middle, right lower, left upper, lingular lower lobes. All the secretions suctioned out clear. The mucus plugs were removed with the help of normal saline wash, sent for cultures. Procedure was well tolerated by the patient without difficulty. Postoperative findings would be discussed with the patient once the patient recovers the effects of acute sedation. PAOLA REINA MD CM:PROCNOTE:PROCEDURE NOTE [id number] PAOLA STALLINGS MD
--- NOTE | ~2018-01-10 | PR ---
[place], [place] PROGRESS NOTE NAME: HARRISON IRVIN UNIT #: [id number] ROOM: 530 DOCTOR: PAOLA PATTON MD BIRTHDATE: [birth year] DOS: 01/15/2018 SUBJECTIVE: The patient was noted comfortable without any acute distress at this time. He has been noted without any ongoing acute complaints. Bronchoscopy done yesterday with marked improvement and the wheezing, shortness of breath and cough was reported. Denies symptoms of hemoptysis or any chest pain. OBJECTIVE: VITAL SIGNS: The patient showed normal temperature, respiratory rate 18, heart rate 84, blood pressure 124/80-118/84. The pulse oxygen saturation on room air 95% saturation. HEENT: Head was atraumatic. Eyes nonicterus. NECK: Supple. CARDIOVASCULAR: S1, S2 is audible. LUNGS: Noted without any wheeze or crackles. ABDOMEN: Soft, nontender. Bowel sounds present. EXTREMITIES: Without any acute edema. LABORATORY DATA: Culture of the bronchial washing, light growth of gram-negative bacilli. At the present time, the Gram stain, moderate white blood cell, few epithelial cells, few gram-positive cocci in pairs and chains and gram-positive bacilli. IMPRESSION: Acute tracheobronchitis, gram-negative infection, pending identification sensitivities with continued improvement noted with resolution of acute symptoms, exacerbation of chronic obstructive pulmonary disease after bronchoscopy. PLAN OF MANAGEMENT: The patient could be considered possible home discharge. The patient closely monitored with the culture results of the bronchial washing to make any decision, change in treatment. At this time, the patient could be discharged on medication such as Levaquin for coverage of the broad spectrum gram-negative infection. [place], [place] PROGRESS NOTE NAME: HARRISON IRVIN UNIT #: [id number] ROOM: 530 DOCTOR: PAOLA PATTON MD BIRTHDATE: [birth year] PAOLA REINA MD CM:PNTRANS 1006 1028 PAOLA STALLINGS MD 01/15/18 1027 interface
--- NOTE | ~2018-01-10 | CON ---
[place], [place] REPORT OF CONSULTATION NAME: HARRISON IRVIN UNIT #: [id number] ROOM: 530 DOCTOR: PAOLA PATTON MD BIRTHDATE: [birth year] DOS: 01/11/2018 PULMONARY CONSULTATION, EVALUATION AND MANAGEMENT CONSULTATION REQUESTED BY: Hospitalist services. REASON FOR CONSULTATION: For assessment of COPD. HISTORY OF PRESENT ILLNESS: This is 47-year-old white female patient, who has been known to me from the previous hospitalization. The patient has been treated in this hospital from 12/18/2017 until 12/21/2017 for the medical management of acute exacerbation of chronic obstructive pulmonary disease and bronchitis. The patient has been noted long-term tobacco use, stating she was still smoking few cigarettes a day until 4 or 5 days ago. She presented to the Emergency Room as she has been noted with increased symptoms of shortness of breath. The patient has been seen by the primary care attending yesterday, Dr. Mendoza. The patient was sent to the hospital. The patient admitted to the hospital for the medical management of acute exacerbation of chronic obstructive pulmonary disease because of increased wheezing and coughing, which has been noted nonproductive. She has been started intravenous corticosteroids. The patient has reported reduction in respiratory symptoms since hospitalization. Denies symptoms of chest pain. Complains of some chest tightness. Denies symptoms of hemoptysis. REVIEW OF SYSTEMS: CONSTITUTIONAL: Fatigue and tiredness reported without any symptoms of fever or chills. EYES: Denies any burning, redness, or tenderness. EARS, NOSE, THROAT SYMPTOMS: Denies sore throat, hoarseness, otalgia, postnasal drainage or epistaxis. CARDIOVASCULAR: No angina pain, edema, or pain of the lower extremities. GASTROINTESTINAL: No dysphagia, nausea, vomiting, diarrhea, abdominal pain, hematemesis, melena, or hematochezia. SKIN: No abnormal lesions or rashes. MUSCULOSKELETAL: The patient denies symptoms of deformities any joint pain, redness, or tenderness. Remaining systems were reviewed. They were noted all negative. The patient's past history, surgical history, and family history were all reviewed and again discussed in consultation 12/19/2017, had remains unchanged. Please refer to that documentation consultation for any new information needed. MEDICATIONS: Administered were noted as use of Lipitor, Flonase, loratadine, Mucinex, Lovenox for DVT prophylaxis; DuoNeb, Solu-Medrol 60 mg q.8 hours, Protonix, Dulera, Rocephin, Zithromax, and other p.r.n. medications. DRUG ALLERGY HISTORY: No known drug allergies. PHYSICAL EXAMINATION: GENERAL: The patient is a 47-year-old female who was noted currently sitting on [place], [place] REPORT OF CONSULTATION NAME: HARRISON IRVIN UNIT #: [id number] ROOM: [facility] DOCTOR: LATOSHA STALLINGS MD,[facility] BIRTHDATE: [birth year] the bed, is in no acute distress. Height of 5 feet 2 inches, weight 184 pounds, BMI 33.7. VITAL SIGNS: The patient showed normal temperature, respiratory rate 18-20, heart rate of 110-120, sinus tachycardia and blood pressure 126/85-109/72. Pulse oxygen saturation noted on 2 liters nasal cannula 94% saturation. HEENT: Moderate obese. Head was atraumatic. Eyes nonicterus. NECK: Supple. CARDIOVASCULAR: S1, S2 audible. LUNGS: The patient noted moderate decreased breath sounds in the lungs bilaterally with vsvv-ar-duoyokks expiratory wheezing, no crackles. ABDOMEN: Soft. Ldpi-uh-vsvgksto obesity. Bowel sounds present. No tenderness. CENTRAL NERVOUS SYSTEM: Cranial nerves 2-12 intact. MUSCULOSKELETAL: Without deformity. SKIN: No new lesions or rashes. LABORATORY DATA: The patient's chest x-ray, which was done yesterday was noted without any acute infiltration or other abnormalities. CMP done yesterday noted normal BUN and creatinine. CBC of the patient that was done yesterday was noted essentially normal. CBC repeated again remains normal. CMP this morning, glucose elevated at 197, creatinine 1.12. Remaining CMP was normal. Troponin was done this morning was normal. IMPRESSION: 1. Recurrent acute exacerbation of chronic obstructive pulmonary disease, nonadherence with the treatment and also with tobacco use. The patient currently admitted to the hospital with recurrent exacerbation of chronic obstructive pulmonary disease/bronchial asthma. 2. Chronic moderate obesity. 3. Steroid-induced hyperglycemia. PLAN OF MANAGEMENT: Continue current dose of corticosteroids, bronchodilators, monitor respiratory status closely. Sinus tachycardia noted related to acute exacerbation of COPD, which is resolved. The patient with progression and improvement in the respiratory status. Nicotine replacement patch to overcome the nicotine withdrawal. Other supportive therapy, plan of management care; plan of treatment to be done. Additional treatment changes will be recommended based on progression of the illness. [place], [place] REPORT OF CONSULTATION NAME: HARRISON IRVIN UNIT #: [id number] ROOM: [facility] DOCTOR: PAOLA PATTON MD BIRTHDATE: [birth year] PAOLA REINA MD CM:CONSTR:REPORT OF CONSULTATION 1400 01/12/18 0200 interface
--- NOTE | ~2018-01-10 | PR ---
[place], [place] PROGRESS NOTE NAME: HARRISON IRVIN UNIT #: [id number] ROOM: 530 DOCTOR: PAOLA PATTON MD BIRTHDATE: [birth year] DOS: 01/14/2018 PULMONARY PROGRESS NOTE SUBJECTIVE: She has been kept n.p.o. past midnight and bronchoscopy planned for today, still noted severe cough, which remained nonproductive with intermittent wheezing and shortness of breath. Denies symptoms of chest pain or any acute hemoptysis. Denies symptoms of abdominal pain, nausea, vomiting, diarrhea in the last 24 hours. Denies edema or pain of the lower extremities. Denies dizziness, headache, or diplopia. Remaining systems were reviewed, they were noted all negative. PHYSICAL EXAMINATION: VITAL SIGNS: For the patient which were recorded this morning, blood pressure as 136/98 previously 129/87. Pulse ox saturation of 98% saturation, temperature normal, respirations 20, heart rate 76. HEENT: Examination shows moderate obesity. Head was atraumatic. NECK: Supple. CARDIOVASCULAR: S1, S2 audible. LUNGS: The patient was noted without any wheezing or crackles at the present time. Breaths are noted generally diminished bilaterally. ABDOMEN: Soft and obese. EXTREMITIES: Without any acute edema with obesity. MUSCULOSKELETAL: Without any deformities. CENTRAL NERVOUS SYSTEM: Cranial nerves 2-12 intact. SKIN: No lesions or rashes. LABORATORY DATA: There were no new labs done today. IMPRESSION: 1. Persistent acute exacerbation of chronic obstructive pulmonary disease, acute tracheobronchitis, suspected mucus impaction of major airways. 2. Chronic obesity and nicotine dependence. PLAN OF MANAGEMENT: Proceed with the bronchoscopy as planned. Any additional treatment changes if necessary will be done after the bronchoscopy. Otherwise, corticosteroids, bronchodilator treatment remains unchanged. [place], [place] PROGRESS NOTE NAME: HARRISON IRVIN UNIT #: [id number] ROOM: 530 DOCTOR: PAOLA PATTON MD BIRTHDATE: [birth year] PAOLA REINA MD CM:PNTRANS [id number] PAOLA STALLINGS MD 01/15/18 0122 interface
--- NOTE | ~2018-01-10 | PR ---
[place], [place] PROGRESS NOTE NAME: HARRISON IRVIN UNIT #: [id number] ROOM: 530 DOCTOR: LATOSHA STALLINGS MD,PAOLA BIRTHDATE: [birth year] DOS: 01/12/2018 SUBJECTIVE: The patient was noted comfortable at this time without any acute distress, resting on the bed. Coughing has been noted moderate severe, nonproductive. She has not been noted symptoms of chest pain, wheezing and shortness of breath, was also noted intermittently. The patient was continued on corticosteroids, bronchodilators, and the antibiotics. Denies symptoms of abdominal pain. Also, using the nicotine placement patches as well to overcome the nicotine withdrawal with history of chronic tobacco use. The patient denies symptoms of nausea, vomiting or diarrhea. OBJECTIVE: VITAL SIGNS: Normal temperature, respiratory rate 18, heart rate 102, blood pressure 113/60, 110/70, pulse oxygen saturation recorded as 92% on 2 L nasal cannula. HEENT: Examination shows head was atraumatic. Eyes are nonicterus. NECK: Supple. CARDIOVASCULAR: S1, S2 audible. LUNGS: Without any wheezing or crackles. ABDOMEN: Soft, nontender. EXTREMITIES: Without any acute edema. IMPRESSION: Persistent severe nonproductive cough with exacerbation of chronic obstructive pulmonary disease at the present time current maximal medical management. PLAN OF THERAPY: Bronchoscopy planned to be done on Sunday morning. Continue in the meantime other therapy, plan and management as same without any changes. Usual care, other supportive plan of therapy and management. PAOLA REINA MD CM:PNTRANS [id number] PAOLA STALLINGS MD 01/13/18 0020 interface
--- NOTE | ~2018-01-10 | PR ---
[place], [place] PROGRESS NOTE NAME: HARRISON IRVIN UNIT #: [id number] ROOM: 530 DOCTOR: LATOSHA STALLINGS MD,PAOLA BIRTHDATE: [birth year] DOS: 01/13/2018 SUBJECTIVE: The patient has not been reported any change in respiratory symptoms, coughing, shortness breath and wheezing. Denies any symptoms of chest pain or hemoptysis. She was continued on corticosteroids, receiving bronchodilators, also getting nicotine replacement patches and the antibiotics. OBJECTIVE: VITAL SIGNS: For the patient which are recorded shows normal temperature, respiratory rate 20, heart rate 105, blood pressure 120/87. Pulse ox saturation was recorded at 93% saturation. HEENT: Examination shows chronic obesity. Head was atraumatic. Eyes nonicterus. NECK: Supple. CARDIOVASCULAR: S1, S2 audible. LUNGS: The patient was noted with moderate decreased breath sounds. Reduction of wheezing partially from previous examination. ABDOMEN: Soft, nontender. Bowel sounds present. EXTREMITIES: Without any acute edema. IMPRESSION: The patient with acute exacerbation of chronic obstructive pulmonary disease, which are noted currently with nicotine dependence, partial reduction of symptoms, but the cough still remains nonproductive, moderate to severe. PLAN OF MANAGEMENT: Reduce the Solu-Medrol dose to 60 mg b.i.d. dosing. Continuation in the meantime, other plan of therapy, care plan. Usual treatment. Addition change in treatment will be done based on the progression of the illness. She is made n.p.o. past midnight. Bronchoscopy done tomorrow. PAOLA REINA MD CM:PNTRANS [phone] PAOLA STALLINGS MD 01/13/18 2345 interface
[~2018-01-10 19:07] MED LIST changes: -DUONEB 3 MG/3 ML3 M1 INH; -FLUONAZOLE100 M1 PO; -LEVOFLOXACIN500 MG PO; -NICODERM CQ1 EAC2 T
[2018-01-10 19:09] VITALS: BP 140/94
[2018-01-10 19:42] LABS: BILIRUBIN NEGATIVE (NEGATIVE); BLOOD 1+ (NEGATIVE); CLARITY CLEAR (CLEAR); COLOR YELLOW (YELLOW); GLUCOSE NEGATIVE (NEGATIVE); KETONE NEGATIVE (NEGATIVE); LEUKO ESTERASE NEGATIVE (NEGATIVE); NITRITE NEGATIVE (NEGATIVE); SPECIFIC GRAVITY <= 1.005 (1.005-1.030); UROBILINOGEN 0.2 E.U./dl (0.2-1.0)
[2018-01-10 19:49] LABS: BACTERIA 1+; RBC 0-2 rbc/hpf (0-2); WBC 0-2 wbc/hpf (0-5)
[2018-01-10 20:43] LABS: BASO # 0.1 10*3/uL (0.0-0.1); BASO % 0.6 % (0.0-1.0); EOS # 0.8 10*3/uL (0.0-0.4); EOS % 8.2 % (1.0-4.0); HEMATOCRIT 44.1 % (37.0-47.0); HEMOGLOBIN 14.6 g/dl (12.0-16.0); LYMPH # 3.6 10*3/uL (1.3-4.4); LYMPH % 35.7 % (27.0-41.0); MEAN CELL VOLUME 93.2 fl (81.0-99.0); MEAN CORPUSCULAR HGB 30.9 pg (27.0-31.0); MEAN CORPUSCULAR HGB CONC 33.1 g/dl (33.0-37.0); MEAN PLATELET VOLUME 10.1 fl (9.6-12.3); MONO # 0.6 10*3/uL (0.1-1.0); MONO % 5.6 % (3.0-9.0); NEUT % 49.5 % (47.0-73.0); PLATELET COUNT AUTOMATED 296 10*3/uL (130-400); RED BLOOD COUNT 4.73 10*6/uL (4.10-5.10); RED CELL DISTRI WIDTH 13.7 % (0-14.5); WHITE BLOOD COUNT 10.1 10*3/uL (4.8-10.8)
[2018-01-10 21:04] LABS: ALBUMIN 3.8 gm/dl (3.1-4.5); ALKALINE PHOSPHATASE 89 U/L (45-117); BUN 10 mg/dl (7-24); CHLORIDE 110 mmol/L (98-107); LIPASE 136 U/L (73-393); SGOT/AST 9 IU/L (3-35); SGPT/ALT 28 U/L (12-78); SODIUM 142 mmol/L (136-145); TOTAL PROTEIN 7.3 gm/dL (6.4-8.2)
[2018-01-10 21:51] VITALS: BP 125/81
[2018-01-10 23:15] VITALS: BP 126/85
[2018-01-10] MEDS ORDERED: DUONEB 3 MG/3 ML3 M1 INH (23:33)
[2018-01-11 06:22] LABS: BASO % 0.3 % (0.0-1.0); EOS % 0.1 % (1.0-4.0); HEMATOCRIT 42.1 % (37.0-47.0); HEMOGLOBIN 13.7 g/dl (12.0-16.0); LYMPH # 0.9 10*3/uL (1.3-4.4); LYMPH % 13.3 % (27.0-41.0); MEAN CELL VOLUME 96.1 fl (81.0-99.0); MEAN CORPUSCULAR HGB 31.3 pg (27.0-31.0); MEAN CORPUSCULAR HGB CONC 32.5 g/dl (33.0-37.0); MEAN PLATELET VOLUME 10.3 fl (9.6-12.3); MONO # 0.1 10*3/uL (0.1-1.0); MONO % 0.7 % (3.0-9.0); NEUT # 5.9 10*3/uL (2.3-7.9); NEUT % 85.2 % (47.0-73.0); PLATELET COUNT AUTOMATED 249 10*3/uL (130-400); RED BLOOD COUNT 4.38 10*6/uL (4.10-5.10); RED CELL DISTRI WIDTH 13.8 % (0-14.5)
[2018-01-11 06:55] LABS: CHLORIDE 113 mmol/L (98-107); POTASSIUM 4.2 mmol/L (3.5-5.1); SODIUM 144 mmol/L (136-145)
[2018-01-11 07:04] LABS: ALBUMIN 3.5 gm/dl (3.1-4.5); ALKALINE PHOSPHATASE 85 U/L (45-117); BUN 9 mg/dl (7-24); CREATININE 1.12 mg/dL (0.55-1.02); PHOSPHOROUS 1.8 mg/dL (2.5-4.9); SGOT/AST 10 IU/L (3-35); SGPT/ALT 27 U/L (12-78); TOTAL PROTEIN 6.8 gm/dL (6.4-8.2)
[2018-01-11 08:00] VITALS: BP 111/69
[2018-01-11 12:00] VITALS: BP 109/72; BP 117/58
[2018-01-11 16:00] VITALS: BP 122/68
[2018-01-11 20:00] VITALS: BP 116/57
[2018-01-12] VITALS: BP 112/71
[2018-01-12 06:32] LABS: BASO % 0.1 % (0.0-1.0); EOS % 0.1 % (1.0-4.0); HEMATOCRIT 42.1 % (37.0-47.0); HEMOGLOBIN 13.3 g/dl (12.0-16.0); LYMPH # 1.5 10*3/uL (1.3-4.4); LYMPH % 8.2 % (27.0-41.0); MEAN CELL VOLUME 97.5 fl (81.0-99.0); MEAN CORPUSCULAR HGB 30.8 pg (27.0-31.0); MEAN CORPUSCULAR HGB CONC 31.6 g/dl (33.0-37.0); MEAN PLATELET VOLUME 10.2 fl (9.6-12.3); MONO # 0.3 10*3/uL (0.1-1.0); MONO % 1.7 % (3.0-9.0); NEUT # 16.1 10*3/uL (2.3-7.9); NEUT % 89.1 % (47.0-73.0); PLATELET COUNT AUTOMATED 282 10*3/uL (130-400); RED BLOOD COUNT 4.32 10*6/uL (4.10-5.10); RED CELL DISTRI WIDTH 14.3 % (0-14.5)
[2018-01-12 06:43] LABS: BUN 9 mg/dl (7-24); CHLORIDE 113 mmol/L (98-107); CREATININE 1.09 mg/dL (0.55-1.02); PHOSPHOROUS 2.8 mg/dL (2.5-4.9); POTASSIUM 3.9 mmol/L (3.5-5.1); SODIUM 146 mmol/L (136-145)
[2018-01-12 08:00] VITALS: BP 110/70
[2018-01-12 12:00] VITALS: BP 113/66
[2018-01-12 16:00] VITALS: BP 114/77
[2018-01-12 20:00] VITALS: BP 121/71
[2018-01-13] VITALS: BP 125/89
[2018-01-13 08:00] VITALS: BP 135/81
[2018-01-13 12:00] VITALS: BP 120/87
[2018-01-13 16:00] VITALS: BP 127/78
[2018-01-13 20:00] VITALS: BP 127/28
[2018-01-14] VITALS (9 sets, daily range): BP systolic 98–136; BP diastolic 59–98
[2018-01-15] VITALS: BP 118/84
[2018-01-15 06:42] LABS: MEAN CELL VOLUME 94.4 fl (81.0-99.0); MEAN CORPUSCULAR HGB 31.5 pg (27.0-31.0); MEAN CORPUSCULAR HGB CONC 33.3 g/dl (33.0-37.0); MEAN PLATELET VOLUME 10.2 fl (9.6-12.3); NUCLEATED RED BLOOD CELL 0.3 % (0.0-0.0); PLATELET COUNT AUTOMATED 269 10*3/uL (130-400); RED BLOOD COUNT 4.45 10*6/uL (4.10-5.10); WHITE BLOOD COUNT 10.7 10*3/uL (4.8-10.8)
[2018-01-15 06:51] LABS: BUN 20 mg/dl (7-24); CHLORIDE 109 mmol/L (98-107); CREATININE 0.89 mg/dL (0.55-1.02); POTASSIUM 4.1 mmol/L (3.5-5.1); SODIUM 144 mmol/L (136-145)
[2018-01-15 07:37] LABS: PLATELET SUFFICIENCY NORMAL (NORMAL); TOTAL CELLS COUNTED 100 #CELLS
[2018-01-15 08:00] VITALS: BP 124/80
[2018-01-15 12:00] VITALS: BP 130/84
[2018-01-15] MEDS ORDERED: PREDNISONE10 MG PO (13:01)
[2018-01-15] MEDS ORDERED: FLUONAZOLE100 M1 PO (13:01)
[2018-01-15] MEDS ORDERED: LEVOFLOXACIN500 MG PO (13:01)
[2018-01-15] MEDS ORDERED: NICODERM CQ1 EAC2 T (13:47)
[2018-01-15 15:04] LABS: ACID FAST SPEC PROCESSING Concentration (.)
[2018-02-08 18:08] LABS: ORGANISM ID, MOLD Final report (.); RESULT 1 Final Identification (.)
[2018-02-25 14:05] LABS: ACID FAST CULTURE Negative (.)
[2018-03-10] MEDS ORDERED: NYST SUSP PO (23:57)
[2018-03-10] MEDS ORDERED: DELTASONE20 M1 PO (23:57)
[2018-03-10] MEDS ORDERED: VIBRAMYCIN100 MG PO (23:57)
== END 2018-01-15 14:18 | disposition home or self-care (01) | DRG 871 ==
LOC: ED 19:07 → 5E 22:31 → EDHOLD 22:31 → 5E 22:48
PROVIDERS: Internal Medicine; Internal Medicine Critical Care Medicine; Internal Medicine Nephrology; Physician Assistant
PROC: 0BC98ZZ Extirpation of Matter from Lingula Bronchus, Via Natural or Artificial Opening Endoscopic (ICD-10-PCS; principal; 2018-01-14)
PROC: 0BC48ZZ Extirpation of Matter from Right Upper Lobe Bronchus, Via Natural or Artificial Opening Endoscopic (ICD-10-PCS; 2018-01-14)
PROC: 0BC88ZZ Extirpation of Matter from Left Upper Lobe Bronchus, Via Natural or Artificial Opening Endoscopic (ICD-10-PCS; 2018-01-14)
PROC: 0BC58ZZ Extirpation of Matter from Right Middle Lobe Bronchus, Via Natural or Artificial Opening Endoscopic (ICD-10-PCS; 2018-01-14)
PROC: 0BC38ZZ Extirpation of Matter from Right Main Bronchus, Via Natural or Artificial Opening Endoscopic (ICD-10-PCS; 2018-01-14)
PROC: 0BC78ZZ Extirpation of Matter from Left Main Bronchus, Via Natural or Artificial Opening Endoscopic (ICD-10-PCS; 2018-01-14)
PROC: 0BC68ZZ Extirpation of Matter from Right Lower Lobe Bronchus, Via Natural or Artificial Opening Endoscopic (ICD-10-PCS; 2018-01-14)
PROC: 0BCB8ZZ Extirpation of Matter from Left Lower Lobe Bronchus, Via Natural or Artificial Opening Endoscopic (ICD-10-PCS; 2018-01-14)
PROC: 0BC18ZZ Extirpation of Matter from Trachea, Via Natural or Artificial Opening Endoscopic (ICD-10-PCS; 2018-01-14)
DX: A41.9 Sepsis, unspecified organism (principal); J18.9 Pneumonia, unspecified organism; J96.01 Acute respiratory failure with hypoxia; J44.1 Chronic obstructive pulmonary disease with (acute) exacerbation; B37.0 Candidal stomatitis; J44.0 Chronic obstructive pulmonary disease with (acute) lower respiratory infection; R00.0 Tachycardia, unspecified; E87.8 Other disorders of electrolyte and fluid balance, not elsewhere classified; R31.9 Hematuria, unspecified; E83.41 Hypermagnesemia; R03.0 Elevated blood-pressure reading, without diagnosis of hypertension; J30.2 Other seasonal allergic rhinitis; E66.09 Other obesity due to excess calories; J20.9 Acute bronchitis, unspecified; F17.200 Nicotine dependence, unspecified, uncomplicated; R73.9 Hyperglycemia, unspecified; T38.0X5A Adverse effect of glucocorticoids and synthetic analogues, initial encounter; E78.5 Hyperlipidemia, unspecified; E83.39 Other disorders of phosphorus metabolism; K21.9 Gastro-esophageal reflux disease without esophagitis; J30.9 Allergic rhinitis, unspecified; Z71.6 Tobacco abuse counseling; Z98.51 Tubal ligation status; Z82.49 Family history of ischemic heart disease and other diseases of the circulatory system; Z84.1 Family history of disorders of kidney and ureter; Z79.899 Other long term (current) drug therapy; Y92.89 Other specified places as the place of occurrence of the external cause; Z68.32 Body mass index [BMI] 32.0-32.9, adult

== ENCOUNTER → 2018-02-12 | Outpatient (CLI) | payer OTHER ==
[~2018-02-12] MED LIST changes: +DUONEB 3 MG/3 ML3 M1 INH; +FLUONAZOLE100 M1 PO; +LEVOFLOXACIN500 MG PO; +NICODERM CQ1 EAC2 T
== END | disposition home or self-care (01) ==
LOC: RESCLI 08:18
DX: E78.5 Hyperlipidemia, unspecified (principal); J45.901 Unspecified asthma with (acute) exacerbation; J30.2 Other seasonal allergic rhinitis; I95.9 Hypotension, unspecified; R00.0 Tachycardia, unspecified; Z79.899 Other long term (current) drug therapy; Z88.8 Allergy status to other drugs, medicaments and biological substances

== ENCOUNTER → 2018-03-27 | Outpatient (CLI) | payer OTHER ==
[~2018-03-27] MED LIST changes: +DELTASONE20 M1 PO; +NYST SUSP PO
== END | disposition home or self-care (01) ==
LOC: RESCLI 03-19 01:05
DX: J45.50 Severe persistent asthma, uncomplicated (principal); E78.5 Hyperlipidemia, unspecified; J30.2 Other seasonal allergic rhinitis; E66.09 Other obesity due to excess calories; Z68.33 Body mass index [BMI] 33.0-33.9, adult; Z98.51 Tubal ligation status; Z87.891 Personal history of nicotine dependence

== ENCOUNTER → 2018-07-10 | Outpatient (CLI) | payer OTHER ==
[~2018-07-10] MED LIST changes: +Ipratropium Brom3 ML INH; +PREDNISONE50 MG PO; +SINGULAIR10 M1 PO
== END | disposition home or self-care (01) ==
LOC: RESCLI 02:28
DX: E66.09 Other obesity due to excess calories (principal); J30.2 Other seasonal allergic rhinitis; E78.5 Hyperlipidemia, unspecified; J45.50 Severe persistent asthma, uncomplicated; R00.0 Tachycardia, unspecified; K21.9 Gastro-esophageal reflux disease without esophagitis; F17.210 Nicotine dependence, cigarettes, uncomplicated; Z79.899 Other long term (current) drug therapy; Z68.34 Body mass index [BMI] 34.0-34.9, adult; Z88.8 Allergy status to other drugs, medicaments and biological substances

== ENCOUNTER 2018-08-22 20:44 | Emergency (ER) | payer OTHER ==
[~2018-08-22] VITALS: Ht 157.4 cm; Wt 84.4 kg
--- NOTE | ~2018-08-22 | EKG ---
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
[~2018-08-22 20:44] MED LIST changes: -Ipratropium Brom3 ML INH; -PREDNISONE50 MG PO; -SINGULAIR10 M1 PO
[2018-08-22] MEDS ORDERED: SINGULAIR10 M1 PO (20:58)
[2018-08-22] MEDS ORDERED: CHANTIX1 M1 PO (20:59)
[2018-08-22 21:35] LABS: BASO # 0.1 10*3/uL (0.0-0.1); BASO % 0.8 % (0.0-1.0); EOS % 9.8 % (1.0-4.0); HEMOGLOBIN 15.7 g/dl (12.0-16.0); LYMPH # 3.7 10*3/uL (1.3-4.4); LYMPH % 37.4 % (27.0-41.0); MEAN CORPUSCULAR HGB 31.4 pg (27.0-31.0); MEAN CORPUSCULAR HGB CONC 34.1 g/dl (33.0-37.0); MEAN PLATELET VOLUME 10.1 fl (9.6-12.3); MONO # 0.6 10*3/uL (0.1-1.0); MONO % 5.9 % (3.0-9.0); NEUT # 4.6 10*3/uL (2.3-7.9); NEUT % 45.8 % (47.0-73.0); PLATELET COUNT AUTOMATED 305 10*3/uL (130-400); RED CELL DISTRI WIDTH 13.6 % (0-14.5)
[2018-08-22 21:48] LABS: ACT PARTIAL THROMBO TIME 24.6 SECONDS (20.8-31.5)
[2018-08-22 21:52] LABS: ALBUMIN 3.8 gm/dl (3.1-4.5); ALKALINE PHOSPHATASE 116 U/L (45-117); BUN 9 mg/dl (7-24); CHLORIDE 105 mmol/L (98-107); CREATININE 0.95 mg/dL (0.55-1.02); LIPASE 96 U/L (73-393); POTASSIUM 3.8 mmol/L (3.5-5.1); SGOT/AST 23 IU/L (3-35); SGPT/ALT 41 U/L (12-78); SODIUM 141 mmol/L (136-145); TOTAL PROTEIN 7.6 gm/dL (6.4-8.2)
[2018-08-22 21:58] LABS: TROPONIN I < 0.015 ng/ml (<0.045)
[2018-08-22] MEDS ORDERED: PREDNISONE50 MG PO (22:48)
[2018-08-22] MEDS ORDERED: Ipratropium Brom3 ML INH (22:48)
== END 2018-08-22 22:52 | disposition home or self-care (01) ==
LOC: ED 20:44
PROVIDERS: Nurse Practitioner Family
DX: J45.909 Unspecified asthma, uncomplicated (principal); F17.200 Nicotine dependence, unspecified, uncomplicated; K21.9 Gastro-esophageal reflux disease without esophagitis; E78.5 Hyperlipidemia, unspecified; E66.9 Obesity, unspecified; Z79.899 Other long term (current) drug therapy

== ENCOUNTER → 2019-03-28 | Outpatient (CLI) | payer OTHER ==
[~2019-03-28] MED LIST changes: +Ipratropium Brom3 ML INH; +PREDNISONE50 MG PO; +SINGULAIR10 M1 PO
== END | disposition home or self-care (01) ==
LOC: RESCLI 10:37
DX: Z12.4 Encounter for screening for malignant neoplasm of cervix (principal); M25.551 Pain in right hip; M25.552 Pain in left hip; E66.9 Obesity, unspecified; J30.2 Other seasonal allergic rhinitis; E78.5 Hyperlipidemia, unspecified; F17.200 Nicotine dependence, unspecified, uncomplicated; K21.9 Gastro-esophageal reflux disease without esophagitis; J45.50 Severe persistent asthma, uncomplicated; Z79.899 Other long term (current) drug therapy; Z88.8 Allergy status to other drugs, medicaments and biological substances

== ENCOUNTER → 2019-03-31 | Outpatient (CLI) | payer OTHER ==
[2019-03-31 09:45] LABS: HEMATOCRIT 45.7 % (37.0-47.0); HEMOGLOBIN 15.1 g/dl (12.0-16.0); MEAN CELL VOLUME 93.1 fl (81.0-99.0); MEAN CORPUSCULAR HGB 30.8 pg (27.0-31.0); MEAN PLATELET VOLUME 10.2 fl (9.6-12.3); RED BLOOD COUNT 4.91 10*6/uL (4.10-5.10); RED CELL DISTRI WIDTH 13.3 % (0-14.5); WHITE BLOOD COUNT 7.6 10*3/uL (4.8-10.8)
[2019-03-31 10:08] LABS: ALBUMIN 3.7 gm/dl (3.1-4.5); BUN 14 mg/dl (7-24); CHLORIDE 112 mmol/L (98-107); CREATININE 0.89 mg/dL (0.55-1.02); POTASSIUM 4.2 mmol/L (3.5-5.1); SGOT/AST 10 IU/L (3-35); SGPT/ALT 17 U/L (12-78); SODIUM 144 mmol/L (136-145)
[2019-03-31 10:11] LABS: ALKALINE PHOSPHATASE 92 U/L (45-117); CHOLESTEROL 221 mg/dL (<200); HDL CHOLESTEROL 40 mg/dl (40-60); LDL CHOLESTEROL 140 mg/dL (9-159); PHOSPHOROUS 3.4 mg/dL (2.5-4.9); TRIGLYCERIDES 204 mg/dl (<150); VLDL CHOLESTEROL 41 mg/dL (6-40)
== END | disposition home or self-care (01) ==
LOC: LAB 03-29 00:04
PROVIDERS: Internal Medicine
DX: Z00.00 Encounter for general adult medical examination without abnormal findings (principal); E78.5 Hyperlipidemia, unspecified

== ENCOUNTER → 2019-09-12 | Outpatient (CLI) | payer BC | END | disposition home or self-care (01) | LOC: RESCLI 00:37 | DX: N92.6 Irregular menstruation, unspecified (principal); J44.9 Chronic obstructive pulmonary disease, unspecified; J45.50 Severe persistent asthma, uncomplicated; E66.09 Other obesity due to excess calories; K21.9 Gastro-esophageal reflux disease without esophagitis; E66.9 Obesity, unspecified; E78.5 Hyperlipidemia, unspecified; J30.2 Other seasonal allergic rhinitis; R06.00 Dyspnea, unspecified; Z71.6 Tobacco abuse counseling; Z68.34 Body mass index [BMI] 34.0-34.9, adult; Z68.33 Body mass index [BMI] 33.0-33.9, adult; Z72.0 Tobacco use; Z79.899 Other long term (current) drug therapy ==

== ENCOUNTER → 2019-12-11 | Outpatient (CLI) | payer BC | END | disposition home or self-care (01) | LOC: MAMMO 12-04 08:00 | DX: N63.21 Unspecified lump in the left breast, upper outer quadrant (principal) ==

== ENCOUNTER 2020-01-10 18:19 | Emergency (ER) | payer SELFPAY ==
[~2020-01-10] VITALS: Ht 157.4 cm; Wt 74.8 kg
[2020-01-10 19:14] LABS: BASO # 0.1 10*3/uL (0.0-0.1); BASO % 0.7 % (0.0-1.0); EOS # 0.4 10*3/uL (0.0-0.4); EOS % 4.1 % (1.0-4.0); LYMPH # 2.2 10*3/uL (1.3-4.4); LYMPH % 25.6 % (27.0-41.0); MEAN CELL VOLUME 90.5 fl (81.0-99.0); MEAN CORPUSCULAR HGB 30.5 pg (27.0-31.0); MEAN CORPUSCULAR HGB CONC 33.6 g/dl (33.0-37.0); MEAN PLATELET VOLUME 10.2 fl (9.6-12.3); MONO # 0.6 10*3/uL (0.1-1.0); MONO % 6.6 % (3.0-9.0); NEUT # 5.3 10*3/uL (2.3-7.9); NEUT % 62.6 % (47.0-73.0); PLATELET COUNT AUTOMATED 299 10*3/uL (130-400); RED BLOOD COUNT 4.86 10*6/uL (4.10-5.10); RED CELL DISTRI WIDTH 13.8 % (0-14.5); WHITE BLOOD COUNT 8.5 10*3/uL (4.8-10.8)
[2020-01-10 19:25] LABS: ACT PARTIAL THROMBO TIME 26.7 SECONDS (20.0-32.1); INTERNATIONAL NORM RATIO 0.9 (2.0-3.5)
[2020-01-10 19:31] LABS: ALBUMIN 3.7 gm/dl (3.1-4.5); ALKALINE PHOSPHATASE 96 U/L (45-117); BUN 12 mg/dl (7-24); CHLORIDE 113 mmol/L (98-107); CREATININE 0.81 mg/dL (0.55-1.02); LIPASE 92 U/L (73-393); POTASSIUM 3.5 mmol/L (3.5-5.1); SGOT/AST 11 IU/L (3-35); SGPT/ALT 24 U/L (12-78); SODIUM 143 mmol/L (136-145); TOTAL PROTEIN 6.9 gm/dL (6.4-8.2)
[2020-01-10 19:33] LABS: TROPONIN I < 0.015 ng/ml (<0.045)
[2020-01-10] MEDS ORDERED: PREDNISONE50 MG PO (20:38)
[2020-01-10] MEDS ORDERED: ZITHROMAX TRI-500 M1 PO (20:51)
== END 2020-01-10 20:45 | disposition home or self-care (01) ==
LOC: ED 18:19
PROVIDERS: Nurse Practitioner Family
DX: J40 Bronchitis, not specified as acute or chronic (principal); K21.9 Gastro-esophageal reflux disease without esophagitis; F17.200 Nicotine dependence, unspecified, uncomplicated; Z79.899 Other long term (current) drug therapy

== ENCOUNTER 2021-04-14 22:54 | Emergency (ER) | payer BC ==
[~2021-04-14 22:54] MED LIST changes: +ZITHROMAX TRI-500 M1 PO
[2021-04-15 00:31] LABS: BASO # 0.1 10*3/uL (0.0-0.1); BASO % 0.5 % (0.0-1.0); EOS # 0.3 10*3/uL (0.0-0.4); EOS % 2.6 % (1.0-4.0); HEMATOCRIT 45.5 % (37.0-47.0); LYMPH # 2.8 10*3/uL (1.3-4.4); LYMPH % 25.6 % (27.0-41.0); MEAN CELL VOLUME 94.2 fl (81.0-99.0); MEAN CORPUSCULAR HGB 30.8 pg (27.0-31.0); MEAN CORPUSCULAR HGB CONC 32.7 g/dl (33.0-37.0); MONO # 0.8 10*3/uL (0.1-1.0); MONO % 7.4 % (3.0-9.0); NEUT % 63.6 % (47.0-73.0); PLATELET COUNT AUTOMATED 288 10*3/uL (130-400); RED BLOOD COUNT 4.83 10*6/uL (4.10-5.10); RED CELL DISTRI WIDTH 14.1 % (0-14.5)
[2021-04-15 00:51] LABS: ALBUMIN 3.7 gm/dl (3.1-4.5); ALKALINE PHOSPHATASE 80 U/L (45-117); BUN 11 mg/dl (7-24); CHLORIDE 107 mmol/L (98-107); CREATININE 0.84 mg/dL (0.55-1.02); POTASSIUM 4.3 mmol/L (3.5-5.1); SGOT/AST 10 IU/L (3-35); SGPT/ALT 21 U/L (12-78); SODIUM 139 mmol/L (136-145); TOTAL PROTEIN 7.2 gm/dL (6.4-8.2)
[2021-04-15] MEDS ORDERED: PREDNISONE20 M1 PO (01:13)
[2021-04-15] MEDS ORDERED: ZITHROMAX250 MG PO (01:13)
== END 2021-04-15 02:04 | disposition home or self-care (01) ==
LOC: ED 22:54
PROVIDERS: Internal Medicine
DX: J40 Bronchitis, not specified as acute or chronic (principal); F17.200 Nicotine dependence, unspecified, uncomplicated; Z79.899 Other long term (current) drug therapy

== ENCOUNTER → 2024-09-03 | Outpatient (CLI) | payer BC | END | disposition home or self-care (01) | LOC: MAMMO 07:30 | PROVIDERS: ATTEND Internal Medicine | DX: Z12.31 Encounter for screening mammogram for malignant neoplasm of breast (principal) ==